=== PATIENT | male | born 1945 | race Caucasian/White ===

== ENCOUNTER → 2019-07-31 | Outpatient (CLI) | payer OTHER ==
[~2019-07-31] MED LIST: ALPR.5; ATEN25 PO; ESCI20; Hydrochloroth12.5 MG PO; LAMO100 PO; LISI20 PO; NIAC500 PO; Naproxen250 MG PO; Norco 7.5-3251 EACH PO; Omeprazole20 M1; SUCR1 PO; VENL150ER PO
== END ==
LOC: LAB 14:20 → LAB SHORT 14:20
DX: L08.9 Local infection of the skin and subcutaneous tissue, unspecified (principal); D48.5 Neoplasm of uncertain behavior of skin; C43.59 Malignant melanoma of other part of trunk
CPT/HCPCS: 87070; 87205

== ENCOUNTER 2020-08-20 17:55 | Inpatient (IN) | payer OTHER ==
[~2020-08-20] VITALS: Ht 175.3 cm; Wt 80.7 kg
[2020-08-20 19:03] LABS: BASOPHILS ABSOLUTE AUTO 0.06 K/mm3 (0.00-0.23); BASOPHILS PERCENT AUTO 1 % (0-2); EOSINOPHILS ABSOLUTE AUTO 0.11 K/mm3 (0.00-0.68); EOSINOPHILS PERCENT AUTO 1 % (0-6); Hematocrit 43.6 % (37.0-53.0); Hemoglobin 14.5 g/dL (13.5-17.5); IMMATURE GRAN ABSOLUTE AUTO 0.04 K/mm3 (0.00-0.10); IMMATURE GRAN PERCENT AUTO 0 % (0-1); LYMPHOCYTES ABSOLUTE AUTO 1.16 K/mm3 (0.84-5.20); LYMPHOCYTES PERCENT AUTO 12 % (21-46); MONOCYTES ABSOLUTE AUTO 0.73 K/mm3 (0.16-1.47); MONOCYTES PERCENT AUTO 8 % (4-13); Mean Corpuscular HGB 29.9 pg (26.0-34.0); Mean Corpuscular HGB Conc 33.3 g/dL (31.5-36.5); Mean Corpuscular Volume 90 fL (80-100); Mean Platelet Volume 10.3 fL (9.1-12.4); NEUTROPHILS ABSOLUTE AUTO 7.57 K/mm3 (1.96-9.15); NEUTROPHILS PERCENT AUTO 78 % (41-73); Platelet Count 315 K/mm3 (150-400); RDW Coefficient Variation 12.8 % (11.7-14.2); RDW Standard Deviation 41.7 fL (35.1-46.3); Red Blood Cell Count 4.85 M/mm3 (4.30-5.90); White Blood Cell Count 9.67 K/mm3 (4.00-11.30)
[2020-08-20 19:27] LABS: Alanine Aminotransfer (ALT/SGP 23 U/L (12-78); Albumin, Blood 3.1 g/dL (3.4-5.0); Albumin/Globulin Ratio 0.9 (0.8-1.8); Alk Phos 103 U/L (50-136); Anion Gap 4 mmol/L (6-16); Aspartate Aminotrans (AST/SGOT 21 U/L (12-37); Bilirubin, Total 0.6 mg/dL (0.1-1.0); Blood Urea Nitrogen 9 mg/dL (8-24); Bun/Creatinine Ratio 13.3 (12.0-20.0); CO2, Blood 28 mmol/L (21-32); Calcium, Blood 9.1 mg/dL (8.5-10.1); Chloride, Blood 103 mmol/L (98-108); Creatinine, Blood 0.68 mg/dL (0.60-1.20); Globulin, Blood 3.6 g/dL (2.2-4.0); Glomerular Filtration Rate >60 (60-); Glucose, Blood 99 mg/dL (70-99); Potassium, Blood 4.6 mmol/L (3.5-5.5); Sodium, Blood 135 mmol/L (136-145); Total Protein, Blood 6.7 g/dL (6.4-8.2)
[2020-08-20] MEDS ORDERED: OMEP20ER PO (23:38)
[2020-08-20] MEDS ORDERED: FLUO10 PO (23:38)
[2020-08-20] MEDS ORDERED: Hytrin1 MG PO (23:39)
[2020-08-20] MEDS ORDERED: Hytrin2 MG PO (23:39)
--- NOTE | 2020-08-21 00:14 | NUR ---
08/20/20 2315 PT ARRIVED TO ROOM VIA GURNEY FROM ER IN STABLE CONDITION. PT REPORTS A LITTLE SOB THAT INCREASES WITH EXERTION, PT IS ON RA AT 98%. PT REPORTS ABD PAIN AND NAUSEA, GAVE MORPHINE AND ZOFRAN, WILL EVAL FOR EFFECT. NO OTHER APPARENT SIGNS OF DISTRESS. CALL LIGHT IS IN REACH. ER REPORTED UNABLE TO GET AHOLD OF PT'S FRANCISCA, THE NUMBER LISTED FOR HER IS OUT OF SERVICE, IT IS THE SAME NUMBER FOR HIS OTHER [employer]. I CALLED THE NUMBER FOR HIM AND LEFT A MESSAGE FOR FRANCISCA TO CALL HERE. PT REPORTS HE DOES NOT HAVE A CELL PHONE, THE NUMBER CALLED IS THEIR HOME PHONE. [facility] TO [facility] IF [facility] HAD ANY OTHER [facility]TACT NUMBERS FOR HIS , THEY HAD THE SAME NUMBERS THAT WE DID. WILL WAIT FOR HER TO CALL BACK, IF SHE DOES NOT CALL BACK WILL HAVE DAY SHIFT ADDRESS THIS AGAIN IN THE AM.
[2020-08-21 00:52] LABS: Influenza A, PCR Negative (NEGATIVE); Influenza B, PCR Negative (NEGATIVE); Resp Syncytial Virus, PCR Negative (NEGATIVE); SARS-Cov-2 (COVID-19) PCR, MMC Negative (NEGATIVE)
--- NOTE | 2020-08-21 01:07 | NUR ---
PT LYING IN BED, EYES CLOSED, APPEARS TO BE RESTING. BREATHING IS EVEN, UNLABORED. NO APPARENT SIGNS OF DISTRESS. CALL LIGHT IS IN REACH.
--- NOTE | 2020-08-21 03:10 | NUR ---
0230 PT SITTING UP IN BED, REPORTS ABD PAIN OF 8/10 AND NAUSEA, GAVE MORPHINE AND REGLAN, WILL EVAL FOR EFFECT. NO OTHER APPARENT SIGNS OF DISTRESS. CALL LIGHT IS IN REACH.
--- NOTE | 2020-08-21 04:13 | NUR ---
PT LYING IN BED, EYES CLOSED, APPEARS TO BE RESTING. BREATHING IS EVEN, UNLABORED. NO APPARENT SIGNS OF DISTRESS. CALL LIGHT IS IN REACH.
--- NOTE | 2020-08-21 04:14 | NUR ---
PT IS AAO X 4, ON RA. TELE ST [facility]'S. REPORTS ABD PAIN AND NAUSEA. GOT MORPHINE 4 MG X 2, ZOFRAN X 1 AND REGLAN X 1.
[2020-08-21 05:04] LABS: BASOPHILS ABSOLUTE AUTO 0.04 K/mm3 (0.00-0.23); BASOPHILS PERCENT AUTO 0 % (0-2); EOSINOPHILS ABSOLUTE AUTO 0.11 K/mm3 (0.00-0.68); EOSINOPHILS PERCENT AUTO 1 % (0-6); Hematocrit 42.2 % (37.0-53.0); Hemoglobin 13.8 g/dL (13.5-17.5); IMMATURE GRAN ABSOLUTE AUTO 0.03 K/mm3 (0.00-0.10); IMMATURE GRAN PERCENT AUTO 0 % (0-1); LYMPHOCYTES ABSOLUTE AUTO 1.08 K/mm3 (0.84-5.20); LYMPHOCYTES PERCENT AUTO 12 % (21-46); MONOCYTES ABSOLUTE AUTO 0.69 K/mm3 (0.16-1.47); MONOCYTES PERCENT AUTO 7 % (4-13); Mean Corpuscular HGB 29.9 pg (26.0-34.0); Mean Corpuscular HGB Conc 32.7 g/dL (31.5-36.5); Mean Corpuscular Volume 92 fL (80-100); Mean Platelet Volume 10.5 fL (9.1-12.4); NEUTROPHILS ABSOLUTE AUTO 7.34 K/mm3 (1.96-9.15); NEUTROPHILS PERCENT AUTO 79 % (41-73); Platelet Count 278 K/mm3 (150-400); RDW Coefficient Variation 12.9 % (11.7-14.2); Red Blood Cell Count 4.61 M/mm3 (4.30-5.90); White Blood Cell Count 9.29 K/mm3 (4.00-11.30)
[2020-08-21 05:25] LABS: Anion Gap 7 mmol/L (6-16); Blood Urea Nitrogen 11 mg/dL (8-24); Bun/Creatinine Ratio 15.3 (12.0-20.0); CO2, Blood 26 mmol/L (21-32); Calcium, Blood 8.6 mg/dL (8.5-10.1); Chloride, Blood 106 mmol/L (98-108); Creatinine, Blood 0.72 mg/dL (0.60-1.20); Glomerular Filtration Rate >60 (60-); Glucose, Blood 120 mg/dL (70-99); Magnesium, Blood 2.4 mg/dL (1.6-2.4); Potassium, Blood 4.1 mmol/L (3.5-5.5); Sodium, Blood 139 mmol/L (136-145)
--- NOTE | 2020-08-21 06:11 | NUR ---
PT LYING IN BED, EYES CLOSED, APPEARS TO BE RESTING. BREATHING IS EVEN, UNLABORED. NO APPARENT SIGNS OF DISTRESS. CALL LIGHT IS IN REACH. NO OTHER CHANGES THIS SHIFT.
--- NOTE | 2020-08-21 19:28 | NUR ---
SHIFT SUMMARY: NO ACUTE CHANGES TO REPORT THIS SHIFT. PT A&O; CALM AND COOPERATIVE WITH CARE. NO C/O PAIN / NAUSEA. PT INDEPENDENT IN ROOM. AWAITING [facility] BED SPACE. PT CONTINUES NPO R/T PERITONEAL MASS. FLUIDS CONTINUING. REPORT GIVEN TO ONCOMING RN.
--- NOTE | 2020-08-22 04:18 | NUR ---
SHIFT SUMMARY PATIENT HAD NO ACUTE CHANGES OBSERVED. AXOX 4 AND INDEPENDENT IN ROOM. PIV REMAINS INTACT. NPO. D5 NS INFUSING AT 100 mL/HR. STILL AWAITING FOR BED AVAILABILITY PER PHONE CALL FROM [facility] RN THIS SHIFT. VSS/AFEBRILE. DENIES PAIN, SOB, AND N/V. SEAM STAYER REPORTS NSR 87. COOPERATIVE WITH CARE. CALL LIGHT IN REACH. BED IN LOWEST POSITION. WILL CONTINUE TO MONITOR UNTIL DAY SHIFT NURSE ASSUMES CARE.
--- NOTE | 2020-08-22 11:15 | NUR ---
Patient up to Ambulate independently. Gait steady. History, Chart, Medications and Allergies reviewed before start of procedure.Lungs clear T/O to Auscultation. Patient confirms NPO status and agrees with scheduled surgery. PATIENT LEFT HEARING AIDES IN ROOM. GLASSES ON FOR CONSENT.
--- NOTE | 2020-08-22 11:18 | NUR ---
PT TOOK METOPROLOL AND HAD MORPHINE THIS AM.
--- NOTE | 2020-08-22 11:48 | NUR ---
08/22/20 1148 Gucci Martell History, Chart, Medications and Allergies reviewed before start of procedure.MONITOR INTACT WITH CONTINUOUS PULSE OXIMETRY AND INTERMITTENT BP.3-LEAD EKG REVIEWED WITH PHYSICIAN PRIOR TO START OF PROCEDURE.O2 VIA N/C INTACT THROUGHOUT SEDATION/PROCEDURE. PATIENT DETERMINED TO BE ASA APPROPRIATE FOR PROPOFOL SEDATION PRIOR TO START OF PROCEDURE BY DR. GRAFF.
--- NOTE | 2020-08-22 19:34 | NUR ---
SHIFT SUMMARY: NO ACUTE CHANGES TO REPORT THIS SHIFT. PT A&O; CALM AND COOPERATIVE WITH CARE; INDEPENDENT IN ROOM. GASTRIC OUTLET OBSTRUCTION; DIAGNOSTIC EGD (DR GRAFF) THIS SHIFT; VERBAL ORDER TO PLACE NG TUBE IF NAUSEA BEGINS OR PAIN INCREASES; PAIN CONTROLLED WITH PRN PAIN MEDS. AWAITING COBRA TRANSFER TO [facility]; AWAITING BED SPACE. REPORT GIVEN TO ONCOMING RN.
--- NOTE | 2020-08-22 23:11 | NUR ---
FLUIDS STOPPED. IV MEDICATIONS HELD THIS EVENING. NURSE AND CHARGE BOTH ATTEMPTED TO PLACE AN IV MULTIPLE TIMES. ICU NURSE TO COME AND ATTEMPT PLACEMENT TONIGHT.
--- NOTE | 2020-08-23 01:06 | NUR ---
AWILDA AMES PLACED ORDER FOR NG TUBE AND ABD X RAY PER [facility] PROVIDER THIS EVENING. HUI ATTEMPTED TO PLACE NG TUBE HERSELF X3 BUT NG TUBE WAS UNSUCCESSFUL. PT KEPT STATED TO "PULL IT OUT" AND WAS NOT SWALLOWING IN ORDER TO HELP WITH NG TUBE PLACEMENT. PT WAS COOPERATIVE AND ATTEMPTED TO SWALLOW BUT STATED IT WAS TOO UNCOMFORTABLE. NO NG TUBE WAS PLACED, ORDERED DISCONTINUED. CURRENTLY WAITING FOR IMAGING. PT WAS TREATED FOR PAIN POST ATTEMPTS WITH 4 MG IV MORPHINE.
--- NOTE | 2020-08-23 05:12 | NUR ---
PT TO BE TRANSFERED BY AMBULANCE TO [facility]. REPORT WAS CALLED TO ANITA LOPEZ ON THE ONCOLOGY UNIT @ 0350. TRANSPORT ARRIVED @ 0500. BELONGINGS ARE WITH PT. PT PLACED HIS HEARING AIDS IN EACH EAR PRIOR TO LEAVING. FACE SHIFT AND PACKET PROVIDED TO TRANSPORT, WELL TRANSFER SUMMARY.
== END 2020-08-23 05:06 | disposition short-term general hospital (02) | DRG 388 ==
LOC: ER 17:55 → MEDS 22:59
PROVIDERS: Emergency Medicine; Internal Medicine Gastroenterology; ADMIT Internal Medicine
PROC: 0DB78ZX Excision of Stomach, Pylorus, Via Natural or Artificial Opening Endoscopic, Diagnostic (ICD-10-PCS; principal; 2020-08-22 12:00)
DX: K56.600 Partial intestinal obstruction, unspecified as to cause (principal); E43 Unspecified severe protein-calorie malnutrition; K31.1 Adult hypertrophic pyloric stenosis; C78.6 Secondary malignant neoplasm of retroperitoneum and peritoneum; N40.0 Benign prostatic hyperplasia without lower urinary tract symptoms; I10 Essential (primary) hypertension; F41.8 Other specified anxiety disorders; K21.9 Gastro-esophageal reflux disease without esophagitis; E78.5 Hyperlipidemia, unspecified
CPT/HCPCS: 0241U; 36415; 74018; 80048; 80053; 83690; 83735; 85025; 88305; 88312; 94762; 96374; 96375; 99285-25; A9270; J2270; J2405; J2704; J2765; J7042; J7120